=== PATIENT | male | born 1965 | race Caucasian/White ===

== ENCOUNTER 2020-02-10 09:03 | Inpatient (IN) | payer OTHER, SELFPAY ==
[~2020-02-10] VITALS: Ht 172.7 cm; Wt 70.0 kg
[2020-02-10 10:27] LABS: BASOPHIL % 0.1 % (0-2); CALCIUM 8.2 mg/dL (8.5-10.1); CARBON DIOXIDE 24.4 mmol/L (21-32); CHLORIDE SERUM 98 mmol/L (98-107); CREATININE SERUM 1.3 mg/dL (0.7-1.3); GFR1 > 60 mL/min; GLUCOSE SERUM 110 mg/dL (74-106); PLATELET COUNT 172 x10^3mcL (130-400); POTASSIUM SERUM 4.2 mmol/L (3.5-5.1); SODIUM SERUM 132 mmol/L (136-145)
[2020-02-10 10:28] LABS: RED CELL DISTRIBUTION WIDTH 14.9 % (11.5-14.5)
[2020-02-10] MEDS ORDERED: ATORVASTATIN CA10 M1 (10:31)
[2020-02-10] MEDS ORDERED: INSULIN SYRING1 EA29 (10:31)
[2020-02-10] MEDS ORDERED: ZESTRIL5 MG (10:31)
[2020-02-10] MEDS ORDERED: PLAVIX75 M1 (10:31)
[2020-02-10] MEDS ORDERED: FORTAMET500 M1 (10:31)
[2020-02-10 10:39] LABS: ALKALINE PHOSPHATASE 74 U/L (46-116); ALT/SGPT 103 U/L (16-63); AST/SGOT 147 U/L (15-37); BILIRUBIN TOTAL 0.88 mg/dL (0.20-1.00); TOTAL PROTEIN, SERUM 6.6 g/dL (6.4-8.2)
[2020-02-10 10:59] LABS: ALBUMIN 2.7 g/dL (3.4-5.0); LACTIC DEHYDROGENASE (LDH) 1156 U/L (100-190)
[2020-02-10 11:42] LABS: microscopic required? YES; urine erythrocyte 1+ (NEGATIVE)
[2020-02-10 12:37] VITALS: BP 147/82
[2020-02-10 16:39] VITALS: BP 152/83
[2020-02-10 19:25] VITALS: BP 156/67
[2020-02-10 23:12] VITALS: BP 153/40
[2020-02-11 03:04] VITALS: BP 152/59
[2020-02-11 06:23] LABS: BASOPHIL % 0.1 % (0-2); PLATELET COUNT 145 x10^3mcL (130-400)
[2020-02-11 06:33] LABS: CALCIUM 7.6 mg/dL (8.5-10.1); CARBON DIOXIDE 25.3 mmol/L (21-32); CHLORIDE SERUM 103 mmol/L (98-107); GFR1 > 60 mL/min; GLUCOSE SERUM 82 mg/dL (74-106); POTASSIUM SERUM 4.1 mmol/L (3.5-5.1); SODIUM SERUM 136 mmol/L (136-145)
[2020-02-11 06:44] LABS: RED CELL DISTRIBUTION WIDTH 14.9 % (11.5-14.5)
[2020-02-11 08:15] VITALS: BP 158/71
[2020-02-11 12:20] VITALS: BP 147/88
[2020-02-11 15:20] VITALS: Ht 172.7 cm; Wt 70.0 kg
[2020-02-11 16:00] VITALS: BP 175/88
[2020-02-11 19:16] VITALS: BP 129/76
[2020-02-11 23:04] VITALS: BP 127/59
[2020-02-12 03:05] VITALS: BP 133/62
[2020-02-12 05:52] LABS: BASOPHIL % 0.4 % (0-2); PLATELET COUNT 156 x10^3mcL (130-400)
[2020-02-12 05:56] LABS: RED CELL DISTRIBUTION WIDTH 14.8 % (11.5-14.5)
[2020-02-12 06:03] LABS: CALCIUM 7.4 mg/dL (8.5-10.1); CARBON DIOXIDE 22.7 mmol/L (21-32); CHLORIDE SERUM 100 mmol/L (98-107); CREATININE SERUM 0.9 mg/dL (0.7-1.3); GFR1 > 60 mL/min; GLUCOSE SERUM 92 mg/dL (74-106); POTASSIUM SERUM 3.9 mmol/L (3.5-5.1); SODIUM SERUM 133 mmol/L (136-145)
[2020-02-12 11:01] LABS: ALBUMIN 2.1 g/dL (3.4-5.0); BILIRUBIN DIRECT 0.55 mg/dL (0.0-0.2); BILIRUBIN TOTAL 1.3 mg/dL (0.20-1.00); TOTAL PROTEIN, SERUM 5.7 g/dL (6.4-8.2)
[2020-02-12 11:20] VITALS: BP 123/73
[2020-02-12 16:30] VITALS: BP 122/46
[2020-02-12 20:00] VITALS: BP 114/71
[2020-02-13 00:18] VITALS: BP 135/56
[2020-02-13 03:12] VITALS: BP 110/71
[2020-02-13 06:30] VITALS: BP 110/71
[2020-02-13 07:30] VITALS: BP 117/74
[2020-02-13 13:17] VITALS: BP 124/56
[2020-02-13 17:32] VITALS: BP 131/84
[2020-02-14 06:34] LABS: BASOPHIL % 0.4 % (0-2); PLATELET COUNT 192 x10^3mcL (130-400)
[2020-02-14 06:36] LABS: RED CELL DISTRIBUTION WIDTH 14.8 % (11.5-14.5)
[2020-02-14 07:21] LABS: ALKALINE PHOSPHATASE 196 U/L (46-116); ALT/SGPT 109 U/L (16-63); BILIRUBIN TOTAL 1.3 mg/dL (0.20-1.00); CALCIUM 7.5 mg/dL (8.5-10.1); CARBON DIOXIDE 22.7 mmol/L (21-32); CHLORIDE SERUM 101 mmol/L (98-107); CREATININE SERUM 0.9 mg/dL (0.7-1.3); GFR1 > 60 mL/min; GLUCOSE SERUM 144 mg/dL (74-106); SODIUM SERUM 134 mmol/L (136-145)
[2020-02-14 07:22] LABS: ALBUMIN 1.8 g/dL (3.4-5.0); TOTAL PROTEIN, SERUM 5.6 g/dL (6.4-8.2)
[2020-02-14 07:36] LABS: AST/SGOT 177 U/L (15-37)
[2020-02-14 08:15] VITALS: BP 111/68
[2020-02-14 15:26] VITALS: BP 102/43
[2020-02-14 15:33] VITALS: BP 123/64
[2020-02-14 19:20] VITALS: BP 90/40
[2020-02-14 23:23] VITALS: BP 102/66
[2020-02-15 03:18] VITALS: BP 95/62
[2020-02-15 05:16] LABS: BASOPHIL % 0.4 % (0-2); PLATELET COUNT 198 x10^3mcL (130-400)
[2020-02-15 05:17] LABS: RED CELL DISTRIBUTION WIDTH 15.4 % (11.5-14.5)
[2020-02-15 05:38] LABS: CALCIUM 7.9 mg/dL (8.5-10.1); CARBON DIOXIDE 24.5 mmol/L (21-32); CHLORIDE SERUM 104 mmol/L (98-107); CREATININE SERUM 0.9 mg/dL (0.7-1.3); GFR1 > 60 mL/min; GLUCOSE SERUM 227 mg/dL (74-106); POTASSIUM SERUM 4.4 mmol/L (3.5-5.1); SODIUM SERUM 140 mmol/L (136-145)
[2020-02-15 08:00] VITALS: BP 119/75
[2020-02-15 16:15] VITALS: BP 104/50
[2020-02-15 19:34] VITALS: BP 116/48
[2020-02-15 23:16] VITALS: BP 111/58
[2020-02-16 03:09] VITALS: BP 110/56
[2020-02-16 05:40] LABS: BASOPHIL % 0.1 % (0-2); PLATELET COUNT 225 x10^3mcL (130-400)
[2020-02-16 05:42] LABS: RED CELL DISTRIBUTION WIDTH 15.5 % (11.5-14.5)
[2020-02-16 05:49] LABS: CALCIUM 7.8 mg/dL (8.5-10.1); CARBON DIOXIDE 23.9 mmol/L (21-32); CHLORIDE SERUM 105 mmol/L (98-107); CREATININE SERUM 0.9 mg/dL (0.7-1.3); GFR1 > 60 mL/min; GLUCOSE SERUM 292 mg/dL (74-106); POTASSIUM SERUM 4.1 mmol/L (3.5-5.1); SODIUM SERUM 138 mmol/L (136-145)
[2020-02-16 08:00] VITALS: BP 109/66
[2020-02-16 12:00] VITALS: BP 118/56
[2020-02-16 16:00] VITALS: BP 131/76
[2020-02-16 21:44] VITALS: BP 130/80
[2020-02-17] VITALS (7 sets, daily range): BP systolic 127–147; BP diastolic 73–86
[2020-02-17 06:13] LABS: CALCIUM 7.9 mg/dL (8.5-10.1); CARBON DIOXIDE 25.4 mmol/L (21-32); CHLORIDE SERUM 108 mmol/L (98-107); CREATININE SERUM 0.8 mg/dL (0.7-1.3); GFR1 > 60 mL/min; GLUCOSE SERUM 238 mg/dL (74-106); POTASSIUM SERUM 4.8 mmol/L (3.5-5.1); SODIUM SERUM 139 mmol/L (136-145)
[2020-02-17 06:21] LABS: PLATELET COUNT 221 x10^3mcL (130-400)
[2020-02-17 06:23] LABS: RED CELL DISTRIBUTION WIDTH 15.5 % (11.5-14.5)
[2020-02-17 06:24] LABS: BASOPHIL % 0 % (0-2)
[2020-02-18 03:25] VITALS: BP 133/82
[2020-02-18 05:25] LABS: CALCIUM 8.2 mg/dL (8.5-10.1); CARBON DIOXIDE 25.7 mmol/L (21-32); CHLORIDE SERUM 102 mmol/L (98-107); CREATININE SERUM 0.9 mg/dL (0.7-1.3); GFR1 > 60 mL/min; GLUCOSE SERUM 333 mg/dL (74-106); POTASSIUM SERUM 4.7 mmol/L (3.5-5.1); SODIUM SERUM 133 mmol/L (136-145)
[2020-02-18 05:26] LABS: BASOPHIL % 0.6 % (0-2); PLATELET COUNT 228 x10^3mcL (130-400); RED CELL DISTRIBUTION WIDTH 14.9 % (11.5-14.5)
[2020-02-18 08:00] VITALS: BP 138/96
[2020-02-18 12:00] VITALS: BP 139/79
[2020-02-18 19:20] VITALS: BP 140/88
[2020-02-19] VITALS (8 sets, daily range): BP systolic 123–152; BP diastolic 75–92
[2020-02-19 07:22] LABS: CALCIUM 8.6 mg/dL (8.5-10.1); CHLORIDE SERUM 100 mmol/L (98-107); CREATININE SERUM 0.7 mg/dL (0.7-1.3); GFR1 > 60 mL/min; GLUCOSE SERUM 263 mg/dL (74-106); POTASSIUM SERUM 4.8 mmol/L (3.5-5.1); SODIUM SERUM 132 mmol/L (136-145)
[2020-02-19 07:37] LABS: PLATELET COUNT 237 x10^3mcL (130-400)
[2020-02-19 07:46] LABS: BASOPHIL % 0 % (0-2)
[2020-02-20 06:57] VITALS: BP 124/77
[2020-02-20 07:13] LABS: CALCIUM 8.9 mg/dL (8.5-10.1); CHLORIDE SERUM 99 mmol/L (98-107); CREATININE SERUM 0.9 mg/dL (0.7-1.3); GFR1 > 60 mL/min; GLUCOSE SERUM 297 mg/dL (74-106); POTASSIUM SERUM 5.1 mmol/L (3.5-5.1); SODIUM SERUM 132 mmol/L (136-145)
[2020-02-20 07:14] LABS: PLATELET COUNT 271 x10^3mcL (130-400)
[2020-02-20 07:20] LABS: RED CELL DISTRIBUTION WIDTH 15.3 % (11.5-14.5)
[2020-02-20 08:27] VITALS: BP 120/71
[2020-02-20 11:21] LABS: BAND NEUTROPHIL 2 % (0-10); MONOCYTE 2 % (0-7); SEGMENTED NEUTROPHILS 89 % (37-75)
[2020-02-20 11:22] LABS: rbc morphology (normal/abnorm) ABNORMAL (NORMAL)
[2020-02-20 11:23] LABS: PLATELET MORPHOLOGY GIANT PLATELET SEEN; ovalocyte/elliptocyte 1+; tear drop cell (dacryocyte) 1+
[2020-02-20 12:30] VITALS: BP 119/55
[2020-02-20 17:45] VITALS: BP 121/52
[2020-02-20 21:35] VITALS: BP 102/61
[2020-02-21 07:44] LABS: CHLORIDE SERUM 101 mmol/L (98-107); CREATININE SERUM 0.9 mg/dL (0.7-1.3); GFR1 > 60 mL/min; GLUCOSE SERUM 229 mg/dL (74-106); SODIUM SERUM 136 mmol/L (136-145)
[2020-02-21 08:30] LABS: PLATELET COUNT 260 x10^3mcL (130-400); RED CELL DISTRIBUTION WIDTH 15.3 % (11.5-14.5)
[2020-02-21 09:08] VITALS: BP 112/73
[2020-02-21 12:52] LABS: BAND NEUTROPHIL 3 % (0-10); MONOCYTE 1 % (0-7); SEGMENTED NEUTROPHILS 88 % (37-75)
[2020-02-21 12:53] LABS: PLATELET MORPHOLOGY LARGE PLATELET SEEN; rbc morphology (normal/abnorm) ABNORMAL (NORMAL)
[2020-02-21 13:54] VITALS: BP 131/77
[2020-02-21 21:30] VITALS: BP 120/69
[2020-02-22 05:30] VITALS: BP 118/72
[2020-02-22 08:24] VITALS: BP 118/72
[2020-02-22 12:58] VITALS: BP 101/63
[2020-02-22 18:15] VITALS: BP 96/62
[2020-02-22 19:30] VITALS: BP 118/65
[2020-02-23 06:34] VITALS: BP 116/69
[2020-02-23 08:25] VITALS: BP 107/70
[2020-02-23 13:55] VITALS: BP 115/60
[2020-02-23 21:35] VITALS: BP 103/64
[2020-02-24 05:15] VITALS: BP 116/67
[2020-02-24 06:36] LABS: BASOPHIL % 0.1 % (0-2); PLATELET COUNT 246 x10^3mcL (130-400)
[2020-02-24 06:43] VITALS: BP 113/71
[2020-02-24 06:46] LABS: CALCIUM 8.9 mg/dL (8.5-10.1); CARBON DIOXIDE 31.3 mmol/L (21-32); CHLORIDE SERUM 96 mmol/L (98-107); CREATININE SERUM 0.8 mg/dL (0.7-1.3); GFR1 > 60 mL/min; GLUCOSE SERUM 374 mg/dL (74-106); SODIUM SERUM 128 mmol/L (136-145)
[2020-02-24 07:38] LABS: RED CELL DISTRIBUTION WIDTH 15.1 % (11.5-14.5)
[2020-02-24 07:55] LABS: POTASSIUM SERUM 6.1 mmol/L (3.5-5.1)
[2020-02-24 13:00] VITALS: BP 116/65
[2020-02-24 17:57] VITALS: BP 113/69
[2020-02-24 20:30] VITALS: BP 116/64
[2020-02-25 06:26] VITALS: BP 111/67
[2020-02-25 06:56] LABS: BASOPHIL % 0.1 % (0-2); PLATELET COUNT 245 x10^3mcL (130-400)
[2020-02-25 07:30] LABS: CALCIUM 8.1 mg/dL (8.5-10.1); CARBON DIOXIDE 26.9 mmol/L (21-32); CHLORIDE SERUM 96 mmol/L (98-107); CREATININE SERUM 0.7 mg/dL (0.7-1.3); GFR1 > 60 mL/min; GLUCOSE SERUM 260 mg/dL (74-106); SODIUM SERUM 129 mmol/L (136-145)
[2020-02-25 08:19] LABS: RED CELL DISTRIBUTION WIDTH 15.2 % (11.5-14.5)
[2020-02-25 08:46] VITALS: BP 125/78
[2020-02-25 17:25] VITALS: BP 118/65
[2020-02-25 20:05] VITALS: BP 117/76
[2020-02-26 06:01] VITALS: BP 111/71
[2020-02-26 07:13] LABS: BASOPHIL % 0.1 % (0-2); PLATELET COUNT 242 x10^3mcL (130-400)
[2020-02-26 07:29] LABS: CALCIUM 8.2 mg/dL (8.5-10.1); CARBON DIOXIDE 24.9 mmol/L (21-32); CHLORIDE SERUM 97 mmol/L (98-107); CREATININE SERUM 0.5 mg/dL (0.7-1.3); GFR1 > 60 mL/min; GLUCOSE SERUM 198 mg/dL (74-106); POTASSIUM SERUM 4.5 mmol/L (3.5-5.1); RED CELL DISTRIBUTION WIDTH 14.9 % (11.5-14.5); SODIUM SERUM 129 mmol/L (136-145)
[2020-02-26 08:09] VITALS: BP 113/67
[2020-02-26 12:01] VITALS: BP 113/72
[2020-02-26 17:20] VITALS: BP 113/75
[2020-02-26 21:25] VITALS: BP 115/74
[2020-02-27 06:06] VITALS: BP 114/74
[2020-02-27 09:14] VITALS: BP 115/76
[2020-02-27 13:19] VITALS: BP 115/74
[2020-02-27 17:30] VITALS: BP 116/70
[2020-02-27 21:48] VITALS: BP 114/71
[2020-02-28 06:17] VITALS: BP 111/72
[2020-02-28 07:11] LABS: BASOPHIL % 0.2 % (0-2); PLATELET COUNT 249 x10^3mcL (130-400)
[2020-02-28 07:13] LABS: RED CELL DISTRIBUTION WIDTH 15.1 % (11.5-14.5)
[2020-02-28 07:32] LABS: CALCIUM 8.2 mg/dL (8.5-10.1); CARBON DIOXIDE 28.9 mmol/L (21-32); CHLORIDE SERUM 99 mmol/L (98-107); CREATININE SERUM 0.6 mg/dL (0.7-1.3); GFR1 > 60 mL/min; GLUCOSE SERUM 179 mg/dL (74-106); POTASSIUM SERUM 4.6 mmol/L (3.5-5.1); SODIUM SERUM 134 mmol/L (136-145)
[2020-02-28 08:13] VITALS: BP 115/75
[2020-02-28 11:28] VITALS: BP 108/68
[2020-02-28 17:38] VITALS: BP 109/70
[2020-02-28 20:42] VITALS: BP 109/70
[2020-02-28 21:55] VITALS: BP 130/80
[2020-02-29 06:39] VITALS: BP 107/71
[2020-02-29 07:30] LABS: PLATELET COUNT 239 x10^3mcL (130-400)
[2020-02-29 07:43] LABS: BASOPHIL % 0 % (0-2); RED CELL DISTRIBUTION WIDTH 15.1 % (11.5-14.5)
[2020-02-29 07:58] LABS: CALCIUM 8.6 mg/dL (8.5-10.1); CARBON DIOXIDE 29.4 mmol/L (21-32); CHLORIDE SERUM 98 mmol/L (98-107); CREATININE SERUM 0.7 mg/dL (0.7-1.3); GFR1 > 60 mL/min; GLUCOSE SERUM 261 mg/dL (74-106); POTASSIUM SERUM 4.6 mmol/L (3.5-5.1); SODIUM SERUM 132 mmol/L (136-145)
[2020-02-29 09:00] VITALS: BP 112/72
[2020-02-29 18:00] VITALS: BP 113/81
[2020-02-29 20:11] VITALS: BP 115/72
[2020-03-01 06:15] VITALS: BP 117/68
[2020-03-01 13:34] VITALS: BP 105/64
[2020-03-01 17:14] VITALS: BP 137/74
[2020-03-01 21:00] VITALS: BP 106/68
[2020-03-02 05:42] VITALS: BP 112/67
[2020-03-02 07:58] LABS: CALCIUM 8.4 mg/dL (8.5-10.1); CARBON DIOXIDE 28.3 mmol/L (21-32); CHLORIDE SERUM 99 mmol/L (98-107); CREATININE SERUM 0.7 mg/dL (0.7-1.3); GFR1 > 60 mL/min; GLUCOSE SERUM 231 mg/dL (74-106); SODIUM SERUM 134 mmol/L (136-145)
[2020-03-02 08:02] LABS: BASOPHIL % 0.2 % (0-2); PLATELET COUNT 234 x10^3mcL (130-400)
[2020-03-02 08:53] LABS: POTASSIUM SERUM 5.8 mmol/L (3.5-5.1)
[2020-03-02 09:12] LABS: RED CELL DISTRIBUTION WIDTH 15.9 % (11.5-14.5)
[2020-03-02 09:36] VITALS: BP 123/71
[2020-03-02 13:52] VITALS: BP 131/73
[2020-03-02 17:22] VITALS: BP 127/68
[2020-03-02 22:01] VITALS: BP 115/65
[2020-03-03 06:30] VITALS: BP 105/73
[2020-03-03 09:00] VITALS: BP 118/69
[2020-03-03 12:53] LABS: CALCIUM 8.7 mg/dL (8.5-10.1); CHLORIDE SERUM 99 mmol/L (98-107); CREATININE SERUM 0.9 mg/dL (0.7-1.3); GFR1 > 60 mL/min; GLUCOSE SERUM 257 mg/dL (74-106); POTASSIUM SERUM 4.2 mmol/L (3.5-5.1); SODIUM SERUM 131 mmol/L (136-145)
[2020-03-03 13:00] VITALS: BP 113/63
[2020-03-03 21:43] VITALS: BP 108/66
[2020-03-04 05:19] VITALS: BP 104/67
[2020-03-04 06:28] LABS: BASOPHIL % 0.2 % (0-2); PLATELET COUNT 224 x10^3mcL (130-400)
[2020-03-04 06:41] LABS: RED CELL DISTRIBUTION WIDTH 15.9 % (11.5-14.5)
[2020-03-04 07:00] LABS: CALCIUM 8.3 mg/dL (8.5-10.1); CARBON DIOXIDE 27.6 mmol/L (21-32); CHLORIDE SERUM 101 mmol/L (98-107); CREATININE SERUM 0.8 mg/dL (0.7-1.3); GFR1 > 60 mL/min; GLUCOSE SERUM 184 mg/dL (74-106); POTASSIUM SERUM 5.3 mmol/L (3.5-5.1); SODIUM SERUM 136 mmol/L (136-145)
[2020-03-04 09:15] VITALS: BP 103/68
[2020-03-04 12:29] VITALS: BP 116/74
[2020-03-04 12:43] VITALS: BP 116/74
== END 2020-03-04 15:16 | disposition other institution (70) | DRG 871 ==
LOC: ED 09:03 → IC 11:54 → DU 11:54 → IC 11:54 → MU 02-13 06:19 → IC 02-14 03:55 → DU 02-18 23:07
PROVIDERS: Emergency Medicine; Internal Medicine Critical Care Medicine; ADMIT Internal Medicine; ATTEND Internal Medicine
PROC: 30233K1 Transfusion of Nonautologous Frozen Plasma into Peripheral Vein, Percutaneous Approach (ICD-10-PCS; principal; 2020-02-14)
DX: A41.9 Sepsis, unspecified organism (principal); U07.1 COVID-19; I21.4 Non-ST elevation (NSTEMI) myocardial infarction; J96.01 Acute respiratory failure with hypoxia; J12.89 Other viral pneumonia; E87.1 Hypo-osmolality and hyponatremia; N17.9 Acute kidney failure, unspecified; R65.20 Severe sepsis without septic shock; E78.5 Hyperlipidemia, unspecified; E78.00 Pure hypercholesterolemia, unspecified; I25.10 Atherosclerotic heart disease of native coronary artery without angina pectoris; E11.65 Type 2 diabetes mellitus with hyperglycemia; E87.5 Hyperkalemia; D72.829 Elevated white blood cell count, unspecified; Z86.73 Personal history of transient ischemic attack (TIA), and cerebral infarction without residual deficits; Z79.2 Long term (current) use of antibiotics; Z79.899 Other long term (current) drug therapy
CPT/HCPCS: 36600; 82962; 83880; 85378; 87804; G0378; J0456; J0696; J1650; J1815; J2060; J2550; J2920; J3535; J7030; J7040; J7050; J8540; Q0092; U0003-CS